=== PATIENT | female | born 1945 | race Caucasian/White ===

== ENCOUNTER → 2020-05-30 | Day surgery (SDC) | payer MEDICARE ==
[~2020-05-30] MED LIST: Lactated Ringers 1,000 ML IV SCH; Lidocaine 1%/Sod Bicarbonate in NS 8.4% 1 ML Syringe IDERM PRN; Propofol 200 MG/20 ML SDV ONE; Sodium Chloride 0.9% 10 ML Syringe FLUSH PRN
--- NOTE | 2020-05-30 08:21 | PCM.PREANE ---
Preanesthetic Assessment - Procedure Proposed Procedure: screening colonoscopy - Anesthesia/Transfusion/Family Hx Anesthesia History: Prior Anesthesia Reaction Family History of Anesthesia Reaction: No Transfusion History: Prior Transfusion Without Reaction - Review of Systems General: No Symptoms Pulmonary: No Symptoms Cardiovascular: No Symptoms Gastrointestinal: No Symptoms Neurological: No Symptoms Other: Reports: Diabetes (128 this am gluco check) - Physical Assessment NPO Status Date: 05/29/20 NPO Status Time: 00:00 Height: 1.6 m Weight: 68.855 kg ASA Class: 2 Mental Status: Alert & Oriented x3 Airway Class: Mallampati = 1 Dentition: Reports: Partial, Downing(s) Thyro-Mental Finger Breadths: 3 Mouth Opening Finger Breadths: 3 ROM/Head Extension: Full Lungs: Clear to Auscultation, Normal Respiratory Effort Cardiovascular: Regular Rate, Regular Rhythm - Allergies Allergies/Adverse Reactions: Allergies Allergy/AdvReac Type Severity Reaction Status Date / Time No Known Allergies Allergy Verified 05/29/20 14:39 - Blood Blood Available: No Product(s) Available: None - Anesthesia Plan Pre-Op Medication Ordered: None - Acknowledgements Anesthesia Type Planned: MAC Pt an Appropriate Candidate for the Planned Anesthesia: Yes Alternatives and Risks of Anesthesia Discussed w Pt/Guardian: Yes Pt/Guardian Understands and Agrees with Anesthesia Plan: Yes PreAnesthesia Questionnaire HEENT History: Reports: Cataract, Impaired Vision Other HEENT History: wears glasses, cerumen impaction, bilateral hearing loss, tinnitis, tonsillectomy Cardiovascular History: Reports: High Cholesterol, Hypertension Respiratory History: Reports: None Gastrointestinal History: Reports: Helicobacter Pylori, Other (See Below) Other Gastrointestinal History: ulcers, dysphagia Genitourinary History: Reports: Renal Calculus 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: Musculoskeletal History: Reports: Arthritis, Back Pain, Chronic, Other (See Below) Other Musculoskeletal History: lumbar degenerative disc disease, shoulder surgery Neurological History: Reports: Other (See Below) Other Neuro History: lumbar degenerative disc disease Psychiatric History: Reports: Depression Endocrine/Metabolic History: Reports: Diabetes, Type II, Other (See Below) Other Endocrine/Metabolic History: had parathyroid removed Hematologic History: Reports: Other (See Below) Other Hematologic History: Low blood calcium Immunologic History: Reports: None Oncologic (Cancer) History: Reports: None Dermatologic History: Reports: Other (See Below) Other Dermatologic History: dermatitis - Infectious Disease History Infectious Disease History: Reports: None - Past Surgical History HEENT Surgical History: Reports: Cataract Surgery, Tonsillectomy Cardiovascular Surgical History: Reports: None Respiratory Surgical History: Reports: None GI Surgical History: Reports: Colonoscopy, Hernia, Abdominal Female Surgical History: Reports: None Male Surgical History: Reports: None Endocrine Surgical History: Reports: Parathyroidectomy, Thyroidectomy Neurological Surgical History: Reports: None Musculoskeletal Surgical History: Reports: Knee Replacement, Other (See Below) Other Musculoskeletal Surgeries/Procedures:: Bilateral rotator cuff replacement Oncologic Surgical History: Reports: None Dermatological Surgical History: Reports: None - SUBSTANCE USE Tobacco Use Status *Q: Never Tobacco User Tobacco Use Within Last Twelve Months: No Second Hand Smoke Exposure: No Days Per Week of Alcohol Use: 0 Number of Drinks Per Day: 0 Total Drinks Per Week: 0 Recreational Drug Use History: No - HOME MEDS Home Medications: Home Meds Bisoprolol/Hydrochlorothiazide [Ziac 5-6.25 MG] 1 tab PO DAILY 08/26/15 [History] Multivit-Min/Iron/Folic/Lutein [Centrum Silver Women Tablet] 1 tab PO DAILY 08/26/15 [History] Simvastatin [Zocor] 40 mg PO BEDTIME 08/26/15 [History] Cholecalciferol (Vitamin D3) [Vitamin D3] 1,000 unit PO DAILY 05/29/18 [History] metFORMIN [Glucophage XR] 750 mg PO BEDTIME 05/29/18 [History] Acetaminophen [Tylenol Arthritis] 2 tab PO BID 05/29/20 [History] Ascorbate Calcium/Bioflavonoid [Sara-C 1,000 mg Tablet] 1 tab PO DAILY 05/29/20 [History] Aspirin 81 mg PO DAILY 05/29/20 [History] Calcium Carb, Citrate/Vit D3 [Citracal + D ER] 1 tab PO DAILY 05/29/20 [History] Calcium Carb/Vitamin D3/Vit K1 [Viactiv 650 mg-12.5 Mcg Chew] 3 tab PO DAILY 05/29/20 [History] Cranberry 500 mg PO DAILY 05/29/20 [History] Docusate Sodium [Stool Softener] 100 mg PO DAILY 05/29/20 [History] Enalapril [Vasotec] 5 mg PO DAILY 05/29/20 [History] Escitalopram Oxalate [Lexapro] 5 mg PO DAILY 05/29/20 [History] Fish Oil/DHA/EPA [Fish Oil 1,200 MG] 2,400 mg PO DAILY 05/29/20 [History] Meloxicam 7.5 mg PO DAILY 05/29/20 [History] SitaGLIPtin [Januvia] 100 mg PO DAILY 05/29/20 [History] Triamcinolone Acetonide [Triamcinolone Acetonide 0.1% Crm] 1 dose TOP ASDIRECTED PRN 05/29/20 [History] - CURRENT (IN HOUSE) MEDS Current Meds: Current Medications Lactated Ringer's (Ringers, Lactated) 1,000 mls @ 125 mls/hr IV ASDIRECTED DYLON Stop: 05/30/20 23:00 Lidocaine/Sodium Bicarbonate (Buffered Lidocaine 1% In Ns 8.4%) 0.25 ml IDERM ONETIME PRN PRN Reason: Prior to IV Start Stop: 05/30/20 18:00 Sodium Chloride (Saline Flush) 10 ml FLUSH ASDIRECTED PRN PRN Reason: Keep Vein Open Stop: 05/30/20 18:00 Discontinued Medications Propofol (Diprivan 20 Ml) Confirm Administered Dose 400 mg .ROUTE .STK-MED ONE Stop: 05/30/20 07:39
--- NOTE | 2020-05-30 09:35 | PCM48HPAN ---
Post Anesthesia Note - EVALUATION WITHIN 48HRS OF ANESTHETIC Vital Signs in Normal Range: Yes Patient Participated in Evaluation: Yes Respiratory Function Stable: Yes Airway Patent: Yes Cardiovascular Function Stable: Yes Hydration Status Stable: Yes Pain Control Satisfactory: Yes Nausea and Vomiting Control Satisfactory: Yes Mental Status Recovered: Yes Vital Signs: Last Vital Signs Temp 36.4 C 05/30/20 08:00 Pulse 64 05/30/20 08:00 Resp 17 05/30/20 08:00 BP 154/81 H 05/30/20 08:00 Pulse Ox 98 05/30/20 08:00 - COMMENTS/OBSERVATIONS Free Text/Narrative:: NO ANESTHESIA COMPLICATIONS NOTED
--- NOTE | 2020-05-30 09:37 | PCM.PRNOTE ---
- Free Text/Narrative Note: Date: 05/30/2020 Procedure: diagnostic esophagogastroduodenoscopy Indication: progressive dysphagia Surgeon: Carlos Suh MD Findings: normal gross mucosal appearance of duodenum and stomach. Apparent inflammatory mucosal changes near Z-line. No gross metaplasia, mass, or difficulty traversing the GEORGETTE. No significant hiatal hernia. Detailed Report: The patient was taken to the endoscopy suite and placed in left lateral decubitus position. Time out was performed and monitored anesthesia care initiated. A bite block was placed. The endoscope was inserted orally and advanced to the duodenum with ease. The duodenum appeared normal, a sample of mucosa was biopsied with forceps. The stomach appeared normal, a sample of antral mucosa was obtained with forceps. On retroflexion, no mass or hernia was noted at the esophagogastric junction. There appeared to be some inflammation proximal to the Z-line. Biopsies of the GE junction and esophageal mucosa were obtained with forceps. There was no obvious dilation of the esophagus or retained luminal contents. The GEORGETTE was not noted to be hypertensive of difficult to traverse with the scope. Air was suctioned prior to withdrawal of the scope. The patient tolerated the procedure well.
[2020-05-30 09:38] VITALS: BP 110/61
[2020-05-30 10:00] VITALS: PULSE 68
== END | disposition home or self-care (01) ==
LOC: JD.SDS 07:49
PROVIDERS: ATTEND Surgery
DX: K31.89 Other diseases of stomach and duodenum (principal); F32.9 Major depressive disorder, single episode, unspecified; I10 Essential (primary) hypertension; E78.00 Pure hypercholesterolemia, unspecified; E11.9 Type 2 diabetes mellitus without complications; Z79.899 Other long term (current) drug therapy; Z79.84 Long term (current) use of oral hypoglycemic drugs; Z98.890 Other specified postprocedural states
CPT/HCPCS: 43239; 82962; J2704; J7120; 00731

== ENCOUNTER 2020-09-14 09:51 | Day surgery (SDC) | payer MEDICARE ==
--- NOTE | 2020-09-13 12:10 | PCM.SN.2 ---
- Free Text/Narrative Note: Date: 09/14/2020 Time Out: 1212 Start: 1212 Stop: 1222 Current Procedure: Right interscalene block under US guidance for postoperative pain control requested by Dr. Mckeon. Patient chart reviewed, risk/benefits discussed with patient, consent obtained. Patient positioned supine, monitors/alarms on, oxygen placed via nasal cannula at 2 LPM. IV sedation administered: Versed 1mg IV, Fentanyl 50mcg IV given in preop prior to block placement. Right shoulder prepped with two chloropreps. Sterile drapes placed with aseptic technique noted. Under US guidance, right subclavian artery visualized along with the right brachial plexus. Plexus followed up to C6 cricoid level, and area localized with 2mls of 1% lidocaine. 22gauge 2 inch stimiplex needle advanced under US with 0.6mV with stimulation of biceps noted. Good stimulation noted with decreased voltage and absent at 0.3mVs. 1ml of Normal Saline injected with loss of stimulation noted to confirm needle not placed intraneurally. Incremental dosing of 5mls with negative aspiration noted prior to each injection of 0.5% ropivacaine with 1:200,000 epinephrine. Total volume=30mls. Please refer to nurses noted for vital signs. Alejandra Aguilar CRNA
--- NOTE | 2020-09-13 12:15 | PCM.PREANE ---
<GregOlivia M - Last Filed: 09/14/20 10:41> Preanesthetic Assessment - Anesthesia/Transfusion/Family Hx Anesthesia History: Prior Anesthesia Reaction Type of Anesthesia Reaction: Excessive Nausea/Vomiting Family History of Anesthesia Reaction: No Transfusion History: No Prior Transfusion(s) - Review of Systems General: No Symptoms Pulmonary: No Symptoms Cardiovascular: No Symptoms Gastrointestinal: No Symptoms Neurological: No Symptoms Other: Reports: Diabetes, Neck Pain (History of neck surgery-denies pain), Depression, Anxiety - Physical Assessment NPO Status Time: 22:00 (sip this am with pill) Weight: 67.7 kg ASA Class: 2 Mental Status: Alert & Oriented x3 Airway Class: Mallampati = 1 Dentition: Reports: Partial (at home) Thyro-Mental Finger Breadths: 3 Mouth Opening Finger Breadths: 3 ROM/Head Extension: Full Lungs: Clear to Auscultation, Normal Respiratory Effort Cardiovascular: Regular Rate, Regular Rhythm - Allergies Allergies/Adverse Reactions: Allergies Allergy/AdvReac Type Severity Reaction Status Date / Time No Known Allergies Allergy Verified 09/14/20 11:23 - Blood Blood Available: No - Anesthesia Plan Pre-Op Medication Ordered: Beta Renetta Beta Renetta: Bisoprolol Med Last Dose Time: 08:00 - Acknowledgements Anesthesia Type Planned: General Anesthesia Pt an Appropriate Candidate for the Planned Anesthesia: Yes Alternatives and Risks of Anesthesia Discussed w Pt/Guardian: Yes Pt/Guardian Understands and Agrees with Anesthesia Plan: Yes PreAnesthesia Questionnaire Cardiovascular History: Reports: High Cholesterol, Hypertension Respiratory History: Reports: None Gastrointestinal History: Reports: GERD, Helicobacter Pylori (history) Genitourinary History: Reports: Renal Calculus Musculoskeletal History: Reports: Arthritis, Back Pain, Chronic Psychiatric History: Reports: Anxiety, Depression Endocrine/Metabolic History: Reports: Diabetes, Type II Oncologic (Cancer) History: Reports: None - Past Surgical History HEENT Surgical History: Reports: Cataract Surgery, Tonsillectomy Cardiovascular Surgical History: Reports: None Respiratory Surgical History: Reports: None GI Surgical History: Reports: Colonoscopy Endocrine Surgical History: Reports: Parathyroidectomy, Thyroidectomy Musculoskeletal Surgical History: Reports: Knee Replacement Oncologic Surgical History: Reports: None Dermatological Surgical History: Reports: None - SUBSTANCE USE Tobacco Use Status *Q: Never Tobacco User Tobacco Use Within Last Twelve Months: No Second Hand Smoke Exposure: No Days Per Week of Alcohol Use: 0 Recreational Drug Use History: No - HOME MEDS Home Medications: Home Meds Bisoprolol/Hydrochlorothiazide [Ziac 5-6.25 MG] 1 tab PO DAILY 08/26/15 [History] Multivit-Min/Iron/Folic/Lutein [Centrum Silver Women Tablet] 1 tab PO DAILY 08/26/15 [History] Simvastatin [Zocor] 40 mg PO BEDTIME 08/26/15 [History] Cholecalciferol (Vitamin D3) [Vitamin D3] 1,000 unit PO DAILY 05/29/18 [History] metFORMIN [Glucophage XR] 750 mg PO BEDTIME 05/29/18 [History] Acetaminophen [Tylenol Arthritis] 2 tab PO BID 05/29/20 [History] Ascorbate Calcium/Bioflavonoid [Sara-C 1,000 mg Tablet] 1 tab PO DAILY 05/29/20 [History] Calcium Carb, Citrate/Vit D3 [Citracal + D ER] 1 tab PO DAILY 05/29/20 [History] Calcium Carb/Vitamin D3/Vit K1 [Viactiv 650 mg-12.5 Mcg Chew] 3 tab PO DAILY 05/29/20 [History] Cranberry 500 mg PO DAILY 05/29/20 [History] Docusate Sodium [Stool Softener] 100 mg PO DAILY 05/29/20 [History] Enalapril [Vasotec] 5 mg PO DAILY 05/29/20 [History] Escitalopram Oxalate [Lexapro] 5 mg PO DAILY 05/29/20 [History] Fish Oil/DHA/EPA [Fish Oil 1,200 MG] 2,400 mg PO DAILY 05/29/20 [History] SitaGLIPtin [Januvia] 100 mg PO DAILY 05/29/20 [History] Triamcinolone Acetonide [Triamcinolone Acetonide 0.1% Crm] 1 dose TOP ASDIRECTED PRN 05/29/20 [History] Aspirin [Aspirin EC] 325 mg PO DAILY #40 tablet. 09/13/20 [Rx] Cyclobenzaprine [Flexeril] 5 mg PO BID PRN #20 tab 09/13/20 [Rx] oxyCODONE 5 - 10 mg PO Q4H PRN #40 tab 09/13/20 [Rx] <Alejandra Aguilar - Last Filed: 09/14/20 12:05> Preanesthetic Assessment - Procedure Proposed Procedure: Right Reverse Total Shoulder Arthroplasty - Anesthesia/Transfusion/Family Hx Anesthesia History: Prior Anesthesia Reaction Type of Anesthesia Reaction: Excessive Nausea/Vomiting Family History of Anesthesia Reaction: No Transfusion History: Prior Transfusion Without Reaction Intubation History: Unknown - Review of Systems Cardiovascular: No Symptoms (HTN, Elevated cholesterol, chest xray reveals cardiomegaly) Gastrointestinal: No Symptoms (GERD), Difficulty Swallowing (Chest CT: esophagi tis, small hiatal hernia, ? achalasia) Neurological: No Symptoms (Lumbar spinal stenosis with radiculopathy, Lumbar Degenerative Disk Disease) Other: Reports: Diabetes (Am blood [id number] @ 1024), Neck Pain (History of neck surgery), Depression, Anxiety - Physical Assessment NPO Status Date: 09/13/20 Vital Signs: HR:58 Sat:98% Temp:98.1 Resp:16 B/P:146/75 Height: 1.6 m ASA Class: 2 Mental Status: Alert & Oriented x3 - Lab Values: Laboratory Last Values MRSA (PCR) Negative 09/01/20 13:45 All labs reviewed and noted and within acceptable ranges to proceed with scheduled procedure. - Imaging/EKG Impressions: EKG: SB rate=58, RAD, Abnormal T waves noted: normal per primary physician review. CXR: cardiomegaly, Scoliosis/ Stephanie Floberg UX DESIGNER notified and discussed concerns related to cardiomegaly. Primary states patient is asymptomatic, and no further testing is warranted. Please refer to Stephanie's addendum. - Anesthesia Plan Pre-Op Medication Ordered: Beta Renetta, Other (Preoperative Oral pain meds: lyrica, tylenol, oxycodone @ 1053 Scopalamine patch @ 1055) Beta Renetta: Bisoprolol Med Last Dose Date: 09/14/20 - Acknowledgements Anesthesia Type Planned: General Anesthesia (With a Right ISB under US guidance for post operative pain control requested by Dr. 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: Musculoskeletal History: Reports: Arthritis, Back Pain, Chronic Other Musculoskeletal History: lumbar degenerative disc disease, shoulder surgery Neurological History: Reports: Other (See Below) Other Neuro History: lumbar degenerative disc disease Psychiatric History: Reports: None Endocrine/Metabolic History: Reports: Diabetes, Type II, Other (See Below) Other Endocrine/Metabolic History: had parathyroid removed Hematologic History: Reports: Other (See Below) Other Hematologic History: Low blood calcium Immunologic History: Reports: None Oncologic (Cancer) History: Reports: None Dermatologic History: Reports: None Other Dermatologic History: dermatitis - Infectious Disease History Infectious Disease History: Reports: Chicken Pox - Past Surgical History HEENT Surgical History: Reports: Cataract Surgery, Tonsillectomy Cardiovascular Surgical History: Reports: None Respiratory Surgical History: Reports: None GI Surgical History: Reports: Colonoscopy, Hernia, Abdominal Female Surgical History: Reports: None Male Surgical History: Reports: None Endocrine Surgical History: Reports: Parathyroidectomy, Thyroidectomy Neurological Surgical History: Reports: None Musculoskeletal Surgical History: Reports: Knee Replacement, Other (See Below) Other Musculoskeletal Surgeries/Procedures:: Bilateral rotator cuff replacement Oncologic Surgical History: Reports: None Dermatological Surgical History: Reports: None - CURRENT (IN HOUSE) MEDS Current Meds: Current Medications Acetaminophen (Tylenol) 975 mg PO ONETIME DYLON Stop: 09/14/20 16:00 Lactated Ringer's (Ringers, Lactated) 1,000 mls @ 125 mls/hr IV ASDIRECTED DYLON Stop: 09/14/20 23:00 Lidocaine/Sodium Bicarbonate (Buffered Lidocaine 1% In Ns 8.4%) 0.25 ml IDERM ONETIME PRN PRN Reason: Prior to IV Start Stop: 09/14/20 18:00 Oxycodone HCl (Oxycontin) 10 mg PO ONETIME DYLON Stop: 09/14/20 16:00 Pregabalin (Lyrica) 50 mg PO ONETIME DYLON Stop: 09/14/20 16:00 Scopolamine (Transderm-Scop) 1.5 mg TRDERM ONETIME PRN PRN Reason: PONV Stop: 09/14/20 18:00 Sodium Chloride (Saline Flush) 10 ml FLUSH ASDIRECTED PRN PRN Reason: Keep Vein Open Stop: 09/14/20 18:00 Discontinued Medications Cefazolin Sodium (Ancef) Confirm Administered Dose 2 gm .ROUTE .ST-MED ONE Stop: 09/14/20 09:50 Diphenhydramine HCl (Benadryl) Confirm Administered Dose 50 mg .ROUTE .ST-MED ONE Stop: 09/14/20 09:50 Epinephrine HCl (Adrenalin) Confirm Administered Dose 1 mg .ROUTE .ST-MED ONE Stop: 09/14/20 05:38 Fentanyl (Sublimaze) Confirm Administered Dose 100 mcg .ROUTE .ST-MED ONE Stop: 09/14/20 09:50 Lidocaine HCl (Xylocaine-Mpf 1%) Confirm Administered Dose 4 mls @ as directed .ROUTE .ST-MED ONE Stop: 09/14/20 05:38 Lidocaine HCl (Xylocaine-Mpf 1%) Confirm Administered Dose 2 mls @ as directed .ROUTE .ST-MED ONE Stop: 09/14/20 05:39 Lidocaine HCl (Xylocaine-Mpf 1%) Confirm Administered Dose 4 mls @ as directed .ROUTE .ST-MED ONE Stop: 09/14/20 09:50 Lactated Ringer's (Ringers, Lactated) Confirm Administered Dose 1,000 mls @ as directed .ROUTE .ST-MED ONE Stop: 09/14/20 09:50 Ketamine HCl (Ketalar) Confirm Administered Dose 500 mg .ROUTE .STK-MED ONE Stop: 09/14/20 09:51 Midazolam HCl (Versed 1 Mg/Ml) Confirm Administered Dose 2 mg .ROUTE .ST-MED ONE Stop: 09/14/20 09:51 Miscellaneous Medication (Phenylephrine 1 Mg/10 Ml-Ns) Confirm Administered Dose 1 mg .ROUTE .ST-MED ONE Stop: 09/14/20 09:50 Ondansetron HCl (Zofran) Confirm Administered Dose 4 mg .ROUTE .ST-MED ONE Stop: 09/14/20 09:50 Propofol (Diprivan 20 Ml) Confirm Administered Dose 200 mg .ROUTE .STK-MED ONE Stop: 09/14/20 09:50 Rocuronium [place] (Zemuron) Confirm Administered Dose 50 mg .ROUTE .ST-MED ONE Stop: 09/14/20 09:50 Ropivacaine (Naropin 0.5%) Confirm Administered Dose 30 ml .ROUTE .[facility]-MED ONE Stop: 09/14/20 05:39
[~2020-09-14 09:51] MED LIST changes: +Acetaminophen 325 MG Tab PO SCH; +EPINEPHrine 1 MG/ML SDV ONE; +Ketamine 500 mg/10 ML MDV ONE; +Lactated Ringers 1,000 ML ONE; +Lidocaine 1% 2 ML ONE; +Lidocaine 1% 4 ML ONE; +Midazolam 1 MG/ML 2 ML SDV ONE; +Ondansetron 4 MG/2 ML SDV ONE; +Pregabalin 25 MG Cap PO SCH; +Rocuronium 50 MG/5 ML Vial ONE; +Ropivacaine 0.5% 5 MG/ML 30 ML SDV ONE; +Scopolamine 1.5 MG Transdermal Patch TRDERM PRN; +Succinylcholine/Sod PF 100 MG/5 ML SYRINGE IV ONE; +ceFAZolin 1 GM Vial ONE; +diphenhydrAMINE 50 MG/ML SDV ONE; +fentaNYL 100 MCG/2 ML SDV ONE; +oxyCODONE ER 10 MG TAB.ER PO SCH
[2020-09-14] MEDS ORDERED: Vancomycin 1 GM SDV ONE (12:00)
[2020-09-14] MEDS ORDERED: Dexamethasone 4 MG/ML 5 ML MDV ONE (12:50)
[2020-09-14] MEDS ORDERED: fentaNYL 100 MCG/2 ML SDV ONE (12:52)
[2020-09-14] MEDS ORDERED: fentaNYL 100 MCG/2 ML SDV IVPUSH PRN (13:20)
[2020-09-14] MEDS ORDERED: ePHEDrine 50 MG/ML SDV IVPUSH PRN (13:20)
[2020-09-14] MEDS ORDERED: Metoclopramide 10 MG/2 ML SDV IV PRN (13:20)
[2020-09-14] MEDS ORDERED: HYDROmorphone 0.5 MG/0.5 ML Syringe IVPUSH PRN (13:20)
[2020-09-14] MEDS ORDERED: Ondansetron 4 MG/2 ML SDV IVPUSH PRN (13:20)
[2020-09-14] MEDS ORDERED: Albuterol 0.083% 2.5 MG/3 ML Neb Soln NEB PRN (13:20)
[2020-09-14] MEDS ORDERED: ePHEDrine 50 MG/ML SDV ONE (13:50)
--- NOTE | 2020-09-14 14:56 | PCM.POSTAN ---
POST ANESTHESIA ASSESSMENT - MENTAL STATUS Mental Status: Alert - VITAL SIGNS Vital Signs: Last Vital Signs Temp 97.4 09/14/20 1449 Pulse 81 09/14/20 1449 Resp 15 09/14/20 1449 BP 141/75 09/14/20 1449 Pulse Ox 94% 09/14/20 1449 - RESPIRATORY Respiratory Status: Respiratory Rate WNL, Airway Patent, O2 Saturation Stable, Supplemental Oxygen - CARDIOVASCULAR CV Status: Pulse Rate WNL, Blood Pressure Stable - GASTROINTESTINAL GI Status: No Symptoms - POST OP HYDRATION Hydration Status: Adequate & Stable
--- NOTE | 2020-09-14 15:01 | CR ---
Right shoulder: 3 views of the right shoulder obtained utilizing C-arm device. Study was obtained in the operating room. Comparison: No prior right shoulder exam is available. Study shows placement of a reverse right shoulder prosthesis. Fluoroscopy time is given as 4.9 seconds. Impression: 1. Procedural study as noted above. Diagnostic code #2
--- NOTE | 2020-09-14 15:14 | PCM48HPAN ---
Post Anesthesia Note - EVALUATION WITHIN 48HRS OF ANESTHETIC Vital Signs in Normal Range: Yes Patient Participated in Evaluation: Yes Respiratory Function Stable: Yes Airway Patent: Yes Cardiovascular Function Stable: Yes Hydration Status Stable: Yes Pain Control Satisfactory: Yes Nausea and Vomiting Control Satisfactory: Yes Mental Status Recovered: Yes Vital Signs: Last Vital Signs Temp 36.4 C 09/14/20 15:00 Pulse 77 09/14/20 15:00 Resp 14 09/14/20 15:00 BP 148/69 H 09/14/20 15:00 Pulse Ox 96 09/14/20 15:00
--- NOTE | 2020-09-14 15:47 | CR ---
Right shoulder: Single AP view of the right shoulder was obtained. Comparison: Prior fluoroscopic study performed earlier on the same day. Reverse right shoulder prosthesis is noted. Components are aligned. Underlying bony structures appear intact. Surgical clips are scattered within the upper mediastinum. Impression: 1. Reverse right shoulder prosthesis. 2. Other stable findings as noted above. Diagnostic code #2
[2020-09-15 08:41] VITALS: BP 138/65; PULSE 72
--- NOTE | 2020-09-26 12:51 | PCM.OPNOTE ---
- General Post-Op/Procedure Note Date of Surgery/Procedure: 09/14/20 Operative Procedure(s): right reverse total shoulder arthroplasty Pre Op Diagnosis: right shoulder rotator cuff tear arthropathy Post-Op Diagnosis: Same Anesthesia Technique: General ET Tube, Regional Block Primary Surgeon: Sachin Mckeon Anesthesia Provider: Alejandra Aguilar Fuel Tank Sealer And Tester: Massiel Tillman Fuel Tank Sealer And Tester: Alize Fabian EBL in mLs: 150 Complications: None Condition: Good Free Text/Narrative:: 12 stem 28 baseplate 4mm 32+6
--- NOTE | 2020-09-26 15:18 | OR ---
DATE OF OPERATION: 09/14/2020 SURGEON: Sachin Mckeon MD OPERATION PERFORMED: Right reverse total shoulder arthroplasty. PREOPERATIVE DIAGNOSIS: Right shoulder rotator cuff tear arthropathy. POSTOPERATIVE DIAGNOSIS: Right shoulder rotator cuff tear arthropathy. ANESTHESIA: General endotracheal intubation with regional interscalene block. ANESTHESIA PROVIDER: Alejandra Aguilar CRNA ASSISTANTS: Massiel Tillman PA-C and Alize Fabian LPN. ESTIMATED BLOOD LOSS: 150 mL. COMPLICATIONS: None. CONDITION: Stable. IMPLANT: 1. Mondovi size 12, 135 degree reverse humeral stem. 2. Mark size 28 mm concentric base plate. 3. Mondovi size 4 mm polyethylene liner. 4. Mondovi size 32 +6 glenosphere. DESCRIPTION OF PROCEDURE: The patient was identified in the preoperative holding area where proper site was marked and identified by the surgeon. The patient was taken back to the operating theater where after adequate anesthesia the patient was placed supine on radiolucent table. Right upper extremity was then sterilely prepped and draped in the usual sterile fashion. OR time-out was performed. The patient received 2 g IV Ancef. The patient was then placed in a reverse Trendelenburg position. Standard deltopectoral incision was made. Cephalic vein was identified and was retracted laterally with the deltoid. Clavipectoral fascia was incised and the conjoint tendon was retracted medially. Anterior humeral circumflex vessels were ligated. Biceps tendon was identified. Opening of the biceps tendon sheath was done. A #2 FiberWire was then used for a pectoralis tenodesis of the biceps tendon. This was then resected proximally to this all the way back to the level of the glenoid. Peel down of the subscapularis tendon was then done and the humeral head was dislocated. Neck cut was then completed and found to be adequate. Anterior and posterior glenoid retractors were then placed. Circumferential removal of any remaining biceps as well as labrum was done at this time as well as a partial capsulectomy. A guide pin was then placed in a center-center position with roughly 55 degree inferior tilt. 28 mm concentric reamer was then utilized down to good bony bleeding bed with positive smile sign. Guide pin was then removed. Center hole was measured and the 28 mm glenoid base plate was screwed into place with a central lag screw and had good compression against the glenoid. An inferior superior locking screw was then placed and found to have adequate purchase. A 32 +6 mm glenosphere was then impacted in place. Attention was turned to the humerus. Starting with a diaphyseal reamers on hand I was able to ream up to a size 12. I was then able to broach up to a size 12, which was found to be rotationally and vertically stable. Calcar planer was then utilized. Trial implants with +4 liner were then put in place. Shoulder was relocated. C-arm fluoroscopy showed anatomic alignment with good tensioning of the conjoint tendon as well as the deltoid with no over-tensioning. At this time, trial implants were then removed. The 135 degree size 12 stem with +4 liner was constructed on the back table and then impacted into the humerus. The humerus was then relocated. C-arm fluoroscopy again was utilized showing no fractures and anatomically aligned components. 400 mL of Irrisept irrigation were irrigated through the right shoulder along with 1 L pulse lavage irrigation with Ancef. Topical tranexamic acid and vancomycin powder were applied. A #2 FiberWire was used for tagging of the deltopectoral interval. 2-0 Vicryl was used subcutaneously. Prineo was used for closure of the skin. The patient was placed in a sterile soft dressing and a pillow sling and sent to the PACU in stable condition. ANTONINO /[id number]
== END 2020-09-14 16:53 | disposition home or self-care (01) ==
LOC: JD.SDS 09:51
PROVIDERS: ATTEND Orthopaedic Surgery
DX: M19.011 Primary osteoarthritis, right shoulder (principal); M75.101 Unspecified rotator cuff tear or rupture of right shoulder, not specified as traumatic; K21.9 Gastro-esophageal reflux disease without esophagitis; I10 Essential (primary) hypertension; G89.18 Other acute postprocedural pain; E78.00 Pure hypercholesterolemia, unspecified; E11.9 Type 2 diabetes mellitus without complications; Z79.899 Other long term (current) drug therapy; Z79.4 Long term (current) use of insulin; Z98.890 Other specified postprocedural states
CPT/HCPCS: 23472; 73020; 76000; 82962; 87641; 97161; 97165; A9270; C1713; C1769; C1776; J0171; J0330; J0690; J1100; J1200; J2250; J2405; J2704; J2795; J3010; J3370; J7120; 01638; 64415; 99100; J2370

== ENCOUNTER 2025-04-14 06:00 | Day surgery (SDC) | payer MEDICARE ==
[~2025-04-14 06:00] MED LIST changes: -Acetaminophen 325 MG Tab PO SCH; -EPINEPHrine 1 MG/ML SDV ONE; -Ketamine 500 mg/10 ML MDV ONE; -Lactated Ringers 1,000 ML IV SCH; -Lactated Ringers 1,000 ML ONE; -Lidocaine 1% 2 ML ONE; -Lidocaine 1% 4 ML ONE; -Lidocaine 1%/Sod Bicarbonate in NS 8.4% 1 ML Syringe IDERM PRN; -Midazolam 1 MG/ML 2 ML SDV ONE; -Ondansetron 4 MG/2 ML SDV ONE; -Pregabalin 25 MG Cap PO SCH; -Propofol 200 MG/20 ML SDV ONE; -Rocuronium 50 MG/5 ML Vial ONE; -Ropivacaine 0.5% 5 MG/ML 30 ML SDV ONE; -Scopolamine 1.5 MG Transdermal Patch TRDERM PRN; +Sodium Chloride 0.9% 10 ML Syringe FLUSH SCH; -Succinylcholine/Sod PF 100 MG/5 ML SYRINGE IV ONE; -ceFAZolin 1 GM Vial ONE; -diphenhydrAMINE 50 MG/ML SDV ONE; -fentaNYL 100 MCG/2 ML SDV ONE; -oxyCODONE ER 10 MG TAB.ER PO SCH
[2025-04-14] MEDS ORDERED: Ondansetron 4 MG/2 ML SDV ONE (06:04)
[2025-04-14] MEDS ORDERED: Midazolam 1 MG/ML 2 ML SDV ONE (06:04)
[2025-04-14] MEDS ORDERED: Lactated Ringers 1,000 ML ONE (06:04)
[2025-04-14] MEDS ORDERED: propofoL 500 MG/50 ML 50 ML ONE (06:04)
[2025-04-14] MEDS ORDERED: Ropivacaine 0.5% 5 MG/ML 30 ML SDV ONE (06:06)
[2025-04-14] MEDS: Lactated Ringers 1,000 ML IV SCH (06:15)
[2025-04-14] MEDS: Scopalamine 1mg/3day Transdermal Patch TRDERM PRN (06:26)
[2025-04-14] MEDS ORDERED: fentaNYL 100 MCG/2 ML SDV IVPUSH PRN (06:27)
[2025-04-14] MEDS ORDERED: Ondansetron 4 MG/2 ML SDV IVPUSH PRN (06:27)
[2025-04-14] MEDS ORDERED: ePHEDrine 50 MG/ML SDV ONE (07:08)
[2025-04-14] MEDS ORDERED: fentaNYL 100 MCG/2 ML SDV ONE (08:02)
[2025-04-14] MEDS ORDERED: Propofol 200 MG/20 ML SDV ONE (08:28)
[2025-04-14] MEDS: Morphine 8 MG, EPINEPHrine 0.3 MG, Cefuroxime 750 MG, Ketorolac 30 MG, Sodium Chloride ... PRN (09:19)
[2025-04-14 13:26] VITALS: BP 120/70; PULSE 77
== END 2025-04-14 12:15 | disposition home or self-care (01) ==
LOC: JD.SDS 06:00
PROVIDERS: ATTEND Orthopaedic Surgery
DX: T84.033A Mechanical loosening of internal left knee prosthetic joint, initial encounter (principal); E78.00 Pure hypercholesterolemia, unspecified; I12.9 Hypertensive chronic kidney disease with stage 1 through stage 4 chronic kidney disease, or unspecified chronic kidney disease; E11.22 Type 2 diabetes mellitus with diabetic chronic kidney disease; N18.9 Chronic kidney disease, unspecified; Z79.84 Long term (current) use of oral hypoglycemic drugs; Z86.16 Personal history of COVID-19; Z79.899 Other long term (current) drug therapy
CPT/HCPCS: 0055T; 27487; 64447; 73560; 97116; 97161; A9270; C1713; C1776; J0169; J0690; J0697; J1885; J2250; J2272; J2405; J2704; J2795; J3010; J3373; J7120; 01402; 99100; J3490